=== PATIENT | female | born 1975 | race Caucasian/White ===

== ENCOUNTER 2023-11-30 06:09 | Emergency (ER) | payer BC, OTHER ==
[~2023-11-30] VITALS: Ht 172.7 cm; Wt 160.0 kg
[2023-11-30 07:54] VITALS: BP 125/71; PULSE 94; RESP 20; TEMP 98.1; O2SAT 100
[2023-11-30] MEDS: KETOROLAC TROMETH 30 MG/ML 1ML VIAL IM ONE (08:28)
== END 2023-11-30 09:42 | disposition home or self-care (01) ==
LOC: ER 06:09
DX: S62.307A Unspecified fracture of fifth metacarpal bone, left hand, initial encounter for closed fracture (principal); Z88.0 Allergy status to penicillin; Z98.890 Other specified postprocedural states; W06.XXXA Fall from bed, initial encounter; Y93.89 Activity, other specified; Y92.89 Other specified places as the place of occurrence of the external cause; Y99.8 Other external cause status
CPT/HCPCS: 29125; 73130; 96372; 99283; J1885